=== PATIENT | male | born 1985 | race Caucasian/White ===

== ENCOUNTER 2018-09-03 14:07 | Emergency (ER) | payer OTHER ==
[~2018-09-03] VITALS: Ht 185.4 cm; Wt 113.4 kg
[~2018-09-03 14:07] MED LIST: Bactrim Ds Tab1 EACH PO; CEPH500 PO; MELO7.5
[2018-09-03] MEDS ORDERED: Prednisone20 MG PO (15:48)
== END 2018-09-03 16:09 | disposition home or self-care (01) ==
LOC: ER 14:07
DX: L03.114 Cellulitis of left upper limb (principal); L03.113 Cellulitis of right upper limb; L23.7 Allergic contact dermatitis due to plants, except food; Z91.030 Bee allergy status; Z79.899 Other long term (current) drug therapy; Z87.891 Personal history of nicotine dependence
CPT/HCPCS: 96372; 99282-25; J3301